=== PATIENT | female | born 1990 | race Caucasian/White ===

== ENCOUNTER → 2016-06-06 | Outpatient (CLI) | payer BC | LOC: MW.CHOBGYN 14:36 | PROVIDERS: ATTEND Obstetrics & Gynecology | DX: Z34.90 Encounter for supervision of normal pregnancy, unspecified, unspecified trimester (principal) | CPT/HCPCS: 81003 ==

== ENCOUNTER → 2016-06-21 | Outpatient (CLI) | payer BC | LOC: MW.CHOBGYN 15:38 | PROVIDERS: ATTEND Obstetrics & Gynecology | DX: Z34.90 Encounter for supervision of normal pregnancy, unspecified, unspecified trimester (principal) | CPT/HCPCS: 87081 ==

== ENCOUNTER → 2016-07-04 | Outpatient (CLI) | payer BC | LOC: MW.CHOBGYN 15:52 | PROVIDERS: ATTEND Nurse Practitioner Women's Health | DX: R50.9 Fever, unspecified (principal) | CPT/HCPCS: 36415; 85025; 87804 ==

== ENCOUNTER 2016-07-08 10:27 | Outpatient (CLI) | payer BC | END 2016-07-08 12:14 | disposition home or self-care (01) | LOC: MW.OBCHECK 10:27 → MW.OB 10:30 → MW.OBCHECK 12:14 | PROVIDERS: ATTEND Obstetrics & Gynecology | DX: O46.93 Antepartum hemorrhage, unspecified, third trimester (principal); Z3A.39 39 weeks gestation of pregnancy | CPT/HCPCS: 59025 ==

== ENCOUNTER 2016-07-12 08:00 | Inpatient (IN) | payer BC ==
[~2016-07-12 08:00] MED LIST: Citric Acid/Sodium Citrate Solution 30 ML Cup PO SCH; Sodium Chloride 0.9% 10 ML Syringe FLUSH PRN; Sodium Chloride 0.9% 2.5 ML Syringe FLUSH PRN; ceFAZolin 2 GM in Premix Bag 1 BAG IV ONE
[2016-07-12] MEDS ORDERED: Ondansetron 4 MG/2 ML SDV ONE (10:09)
[2016-07-12] MEDS ORDERED: Phenylephrine 1% 10 MG/ML SDV ONE (10:09)
[2016-07-12] MEDS ORDERED: Morphine PF 10 MG/10 ML SDV ONE (10:10)
[2016-07-12] MEDS ORDERED: Oxytocin 10 Units/1 ML SDV ONE (10:10)
[2016-07-12] MEDS: Lactated Ringers 1,000 ML IV SCH ×5 (10:16→22:35)
--- NOTE | 2016-07-12 11:17 | PCM.PREANE ---
Preanesthetic Assessment - Anesthesia/Transfusion/Family Hx Anesthesia History: Prior Anesthesia Without Reaction Family History of Anesthesia Reaction: No Transfusion History: No Prior Transfusion(s) - Review of Systems General: No Symptoms Pulmonary: No Symptoms Cardiovascular: No Symptoms Gastrointestinal: No symptoms Neurological: No Symptoms Other: Reports: None - Physical Assessment NPO Status Date: 07/11/16 Height: 1.73 m Weight: 117.027 kg ASA Class: 2 Mental Status: Alert & Oriented x3 Airway Class: Mallampati = 1 Dentition: Reports: Normal Dentition ROM/Head Extension: Full Lungs: Clear to auscultation, Normal respiratory effort Cardiovascular: Regular Rate, Regular Rhythm - Lab Values: Laboratory Last Values WBC 8.69 K/uL (4.0-11.0) 07/11/16 13:41 RBC 4.14 M/uL (4.30-5.90) L 07/11/16 13:41 Hgb 12.5 g/dL (12.0-16.0) 07/11/16 13:41 Hct 37.5 % (36.0-46.0) 07/11/16 13:41 MCV 90.6 fL (80.0-98.0) 07/11/16 13:41 MCH 30.2 pg (27.0-32.0) 07/11/16 13:41 MCHC 33.3 g/dL (31.0-37.0) 07/11/16 13:41 RDW Std Deviation 48.2 fl (28.0-62.0) 07/11/16 13:41 RDW Coeff of Erasmo 15 % (11.0-15.0) 07/11/16 13:41 Plt Count 271 K/uL (150-400) 07/11/16 13:41 MPV 9.80 fL (7.40-12.00) 07/11/16 13:41 Nucleated RBC % 0.0 /100WBC 07/11/16 13:41 Nucleated RBCs # 0 K/uL 07/11/16 13:41 Blood Type O POSITIVE 07/11/16 13:41 Antibody Screen NEGATIVE 07/11/16 13:41 - Allergies Allergies/Adverse Reactions: Allergies Allergy/AdvReac Type Severity Reaction Status Date / Time erythromycin base Allergy Mild Rash Verified 08/18/15 15:29 - Blood Blood Available: No - Anesthesia Plan Pre-Op Medication Ordered: Antacids - Acknowledgements Anesthesia Type Planned: Spinal Pt an Appropriate Candidate for the Planned Anesthesia: Yes Alternatives and Risks of Anesthesia Discussed w Pt/Guardian: Yes Pt/Guardian Understands and Agrees with Anesthesia Plan: Yes Additional Comments: intrathecal duramorph planned for post op analgesia. PreAnesthesia Questionnaire - Past Health History Medical/Surgical History: Denies Medical/Surgical History Genitourinary History: Reports: Renal calculus Other Genitourinary History: hx of kidney stone in 2008 [employer] History: Reports: 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 History: Reports: Fracture Other 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 History: hx fx arm Endocrine/Metabolic History: Reports: Obesity/BMI 30+ - Past Surgical History Head Surgeries/Procedures: Reports: None Female Surgical History: Reports: section - SUBSTANCE USE Smoking Status *Q: Never Smoker Recreational Drug Use History: No - HOME MEDS Home Medications: Home Meds Vit W-Ca,Fe,FA(<1 mg) [ Vitamins] 1 tab PO DAILY 07/07/16 [ History] - CURRENT (IN HOUSE) MEDS Current Meds: Current Medications Citric Acid/Sodium Citrate (Bicitra Solution) 30 ml PO .ONCE VIKI Lactated Ringer's (Ringers, Lactated) 1,000 mls @ 500 mls/hr IV .BOLUS VIKI Last Admin: 07/12/16 10:16 Dose: 500 mls/hr Sodium Chloride (Saline Flush) 10 ml FLUSH ASDIRECTED PRN PRN Reason: Keep Vein Open Sodium Chloride (Saline Flush) 2.5 ml FLUSH ASDIRECTED PRN PRN Reason: Keep Vein Open Discontinued Medications Cefazolin Sodium/Dextrose 2 gm (/ Premix) 50 mls @ 100 mls/hr IV ONETIME ONE Stop: 07/11/16 14:14 Morphine Sulfate (Duramorph Pf) Confirm Administered Dose 10 mg .ROUTE .STK-MED ONE Stop: 07/12/16 10:11 Ondansetron HCl (Zofran) Confirm Administered Dose 4 mg .ROUTE .STK-MED ONE Stop: 07/12/16 10:10 Oxytocin (Pitocin) Confirm Administered Dose 20 unit .ROUTE .STK-MED ONE Stop: 07/12/16 10:11 Phenylephrine HCl (Artem-Synephrine) Confirm Administered Dose 10 mg .ROUTE .STK- MED ONE Stop: 07/12/16 10:10
--- NOTE | 2016-07-12 11:18 | PCM.LDHP ---
L&D History of Present Illness - General Date of Service: 07/12/16 Admit Problem/Dx: Patient Status Order with Admit Dx/Problem 07/11/16 13:24 Patient Status [ADT] Routine Admission Diagnosis/Problem Admission Diagnosis/Problem - planned Source of Information: Patient History Limitations: Reports: No limitations - History of Present Illness Improves with: Reports: None Worsens with: Reports: None Associated Symptoms: Reports: N - Related Data Allergies/Adverse Reactions: Allergies Allergy/AdvReac Type Severity Reaction Status Date / Time erythromycin base Allergy Mild Rash Verified 08/18/15 15:29 Home Medications: Home Meds Vit W-Ca,Fe,FA(<1 mg) [ Vitamins] 1 tab PO DAILY 07/07/16 [ History] Past Medical History - Past Health History Medical/Surgical History: Denies Medical/Surgical History Genitourinary History: Reports: Renal calculus Other Genitourinary History: hx of kidney stone in 2008 [employer] History: Reports: 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 History: Reports: Fracture Other 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 History: hx fx arm Endocrine/Metabolic History: Reports: Obesity/BMI 30+ - Past Surgical History Head Surgeries/Procedures: Reports: None Female Surgical History: Reports: section Social & Family History - Tobacco Use Smoking Status *Q: Never Smoker - Recreational Drug Use Recreational Drug Use: No H&P Review of Systems - Review of Systems: Review Of Systems: See Below General: Reports: no symptoms HEENT: Reports: no symptoms Pulmonary: Reports: No Symptoms Cardiovascular: Reports: no symptoms Gastrointestinal: Reports: No symptoms Genitourinary: Reports: no symptoms 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: Reports: no symptoms Skin: Reports: no symptoms Psychiatric: Reports: no symptoms Neurological: Reports: No Symptoms Hematologic/Lymphatic: Reports: no symptoms Immunologic: Reports: no symptoms L&D Exam - Exam Exam: See Below - Vital Signs Weight: 117.027 kg - OB Specific Contraction Intensity: Mild heart tones: present Presentation: Vertex - Patient Data Lab Results last 24 hrs: Laboratory Results - last 24 hr 07/11/16 07/11/16 Range/Units 13:41 13:41 WBC 8.69 (4.0-11.0) K/uL RBC 4.14 L (4.30-5.90) M/uL Hgb 12.5 (12.0-16.0) g/dL Hct 37.5 (36.0-46.0) % MCV 90.6 (80.0-98.0) fL MCH 30.2 (27.0-32.0) pg MCHC 33.3 (31.0-37.0) g/dL RDW Std Deviation 48.2 (28.0-62.0) fl RDW Coeff of Erasmo 15 (11.0-15.0) % Plt Count 271 (150-400) K/uL MPV 9.80 (7.40-12.00) fL Nucleated RBC % 0.0 /100WBC Nucleated RBCs # 0 K/uL Blood Type O POSITIVE Antibody Screen NEGATIVE Result Diagrams: 07/11/16 13:41 Problem List Initiated/Reviewed/Updated: Yes Orders Last 24hrs: Active Orders 24 hr Category Date Time Status Patient Status [ADT] Routine ADT 07/11/16 13:24 Active Non Stress Test [RC] PER UNIT ROUTINE Care 07/11/16 13:24 Active Procedure Site Prep Instruct [RC] ASDIRECTED Care 07/11/16 13:24 Active Up ad Ashlie [RC] ASDIRECTED Care 07/11/16 13:24 Active Verify Patient Consent Obtain [RC] ASDIRECTED Care 07/11/16 13:24 Active Vital Signs [RC] PER UNIT ROUTINE Care 07/11/16 13:24 Active Citric Acid/Sodium Citrate [Bicitra Solution] Med 07/11/16 13:30 Active 30 ml PO .ONCE Lactated Ringers [Ringers, Lactated] 1,000 ml Med 07/11/16 13:30 Active IV .BOLUS Sodium Chloride 0.9% [Saline Flush] Med 07/11/16 13:23 Active 10 ml FLUSH ASDIRECTED PRN Sodium Chloride 0.9% [Saline Flush] Med 07/11/16 13:23 Active 2.5 ml FLUSH ASDIRECTED PRN Peripheral IV Insertion Adult [OM.PC] Routine Oth 07/11/16 13:24 Ordered Schedule Procedure [COMM] Per Unit Routine Oth 07/11/16 13:24 Ordered Resuscitation Status Routine Resus Stat 07/11/16 13:23 Ordered Medication Orders Citric Acid/Sodium Citrate (Bicitra Solution) 30 ml PO .ONCE VIKI Lactated Ringer's (Ringers, Lactated) 1,000 mls @ 500 mls/hr IV .BOLUS VIKI Last Admin: 07/12/16 10:16 Dose: 500 mls/hr Sodium Chloride (Saline Flush) 10 ml FLUSH ASDIRECTED PRN PRN Reason: Keep Vein Open Sodium Chloride (Saline Flush) 2.5 ml FLUSH ASDIRECTED PRN PRN Reason: Keep Vein Open Assessment/Plan Comment:: And admitted for elective repeat section no care complicated
[2016-07-12] MEDS ORDERED: Acetaminophen/oxyCODONE 325-5 MG Tab PO PRN ×2 (12:38→12:54)
[2016-07-12] MEDS ORDERED: fentaNYL 100 MCG/2 ML SDV IVPUSH PRN (12:38)
[2016-07-12] MEDS ORDERED: Nalbuphine 10 MG/1 ML Vial IVPUSH PRN (12:38)
[2016-07-12] MEDS ORDERED: Octyl 2-Cyanoacrylate 1 Tube ONE (12:44)
[2016-07-12] MEDS ORDERED: Ondansetron 4 MG/2 ML SDV IV PRN (12:54)
[2016-07-12] MEDS ORDERED: Lanolin 100% Cream 7 GM Tube TOP PRN (12:54)
[2016-07-12] MEDS ORDERED: Bisacodyl 10 MG Supp RECTAL PRN (12:54)
[2016-07-12] MEDS ORDERED: diphenhydrAMINE 50 MG/ML SDV IVPUSH PRN (12:54)
--- NOTE | 2016-07-12 12:54 | PCM.OPNOTE ---
- General Post-Op/Procedure Note Date of Surgery/Procedure: 07/12/16 Operative Procedure(s): Term pregnanvy Repeat C/Section Pre Op Diagnosis: Term Post-Op Diagnosis: Same Anesthesia Technique: Spinal Primary Surgeon: Timi Bhatti EBL in mLs: 700 Complications: None Condition: Good
[2016-07-12] MEDS: Ketorolac 30 MG/ML SDV IVPUSH SCH ×3 (13:21→19:46)
--- NOTE | 2016-07-12 14:08 | PCM.POSTAN ---
POST ANESTHESIA ASSESSMENT - MENTAL STATUS Mental Status: alert, oriented - RESPIRATORY Respiratory Status: respiratory rate WNL, airway patent, O2 saturation stable - CARDIOVASCULAR CV Status: pulse rate WNL, blood pressure stable - GASTROINTESTINAL GI Status: no symptoms - PAIN Pain Score: 0 - POST OP HYDRATION Hydration Status: adequate & stable
--- NOTE | 2016-07-12 19:40 | OR ---
SURGEON: Timi Bhatti MD DATE OF PROCEDURE: PREOPERATIVE DIAGNOSIS: Term , previous section, admitted for elective repeat section. 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 ANESTHESIA: Spinal, Dr. Terrazas and nurse promotion officer. ESTIMATED BLOOD LOSS: 700 mL. COMPLICATIONS: None. FINDING: Male fetus. score reported to be 8 and 9. Weight is not available. Normal uterus, tubes, and ovaries. INDICATION: This patient is 25. She had a previous section. She is term. She is admitted for elective repeat section. There was no preoperative problem and her care was essentially is routine. PROCEDURE IN DETAIL: The patient was brought to the OR, properly identified, and after adequate level of spinal anesthesia with a Sharma catheter in the bladder, the patient was prepped and draped in sterile fashion as usual. Time out was done and then low transverse skin incision was done through the old scar. The Eric's fascia, rectus fascia was opened in direction of the incision. The 2 recti muscles were and peritoneal cavity was entered. A low transverse uterine incision was done in the lower uterine segment and extended manually. Hand of the fetus was in the vertex position, delivered without any problem and to the nurse resuscitator, who was present at the time of the delivery. The fetus cried immediately and score later on reported to be 8 and 9. The weight is not available. The placenta delivered spontaneous, complete, and intact and then repair of the lower uterine segment done with 2-0 Vicryl continuous interlocking with 2-0 Vicryl sutures. Then, the reperitonealization of the lower uterine segment was done with 2-0 Vicryl continuous, then the peritoneal cavity evacuated completely from all blood and blood clot and closed with 3-0 Vicryl continuous. The rectus fascia was closed with #1 PDS double strand continuous. The Eric's fascia was closed with 3-0 Vicryl continuous and the skin was closed with skin clips, Insorb, and Dermabond. Instrument and sponge count was correct. The patient tolerated the procedure well, went to recovery room in stable general condition. SABINE / ANAY /[id number]
[2016-07-12] MEDS: Docusate Sodium 100 MG Cap PO SCH (19:47)
[2016-07-13] MEDS: Ketorolac 30 MG/ML SDV IVPUSH SCH ×3 (01:41→13:53)
--- NOTE | 2016-07-13 08:33 | PCM.PNPP ---
- General Info Date of Service: 07/13/16 Functional Status: Reports: pain controlled - Review of Systems General: Reports: No Symptoms HEENT: Reports: no symptoms Pulmonary: Reports: no symptoms Cardiovascular: Reports: No Symptoms Gastrointestinal: Reports: No symptoms Genitourinary: Reports: no symptoms 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: Reports: no symptoms Skin: Reports: no symptoms Neurological: Reports: No Symptoms Psychiatric: Reports: no symptoms - General Info Date of Service: 07/13/16 - Patient Data Vital Signs - most recent: Last Vital Signs Temp 36.6 C 07/13/16 04:00 Pulse 54 L 07/13/16 05:59 Resp 16 07/13/16 05:59 BP 99/54 L 07/13/16 04:00 Pulse Ox 97 07/13/16 05:59 Weight - most recent: 117.027 kg I&O - last 24 hours: Intake & Output 07/12/16 07/13/16 07/13/16 22:59 06:59 14:59 Intake Total 1456 1500 Output Total 100 600 625 Balance 1356 900 -625 Lab Results - last 24 hrs: Laboratory Results - last 24 hr 07/13/16 Range/Units 06:16 Hgb 11.0 L (12.0-16.0) g/dL Hct 33.1 L (36.0-46.0) % Med Orders - Current: Current Medications Bisacodyl (Dulcolax) 10 mg RECTAL .ONCE PRN PRN Reason: Constipation Citric Acid/Sodium Citrate (Bicitra Solution) 30 ml PO .ONCE VIKI Last Admin: 07/12/16 11:24 Dose: 30 ml Diphenhydramine HCl (Benadryl) 25 mg IVPUSH Q6H PRN PRN Reason: Itching or Nausea Last Admin: 07/12/16 15:02 Dose: 25 mg Docusate Sodium (Colace) 100 mg PO BID VIKI Last Admin: 07/12/16 19:47 Dose: 100 mg Emollient Ointment (Lansinoh Hpa) 0 gm TOP ASDIRECTED PRN PRN Reason: Sore Nipples Fentanyl (Sublimaze) 50 mcg IVPUSH Q5M PRN PRN Reason: Pain (severe 7-10) Stop: 07/13/16 12:38 Lactated Ringer's (Ringers, Lactated) 1,000 mls @ 500 mls/hr IV .BOLUS [facility] Last Admin: 07/12/16 11:55 Dose: 500 mls/hr Lactated Ringer's (Ringers, Lactated) 1,000 mls @ 125 mls/hr IV ASDIRECTED [facility] Last Admin: 07/12/16 22:35 Dose: 125 mls/hr Ibuprofen (Motrin) 800 mg PO Q8H PRN PRN Reason: mild pain or fever Ketorolac Tromethamine (Toradol) 30 mg IVPUSH Q6H [facility] Stop: 07/13/16 13:01 Last Admin: 07/13/16 07:42 Dose: 30 mg Nalbuphine HCl (Nubain) 5 mg IVPUSH Q3H PRN PRN Reason: Pruritis Stop: 07/13/16 12:39 Ondansetron HCl (Zofran) 4 mg IV Q4H PRN PRN Reason: Nausea/Vomiting Oxycodone/Acetaminophen (Percocet 325-5 Mg) 2 tab PO ONETIME PRN PRN Reason: Pain (moderate 4-6) Oxycodone/Acetaminophen (Percocet 325-5 Mg) 1 tab PO Q4H PRN PRN Reason: Pain (moderate 4-6) Oxycodone/Acetaminophen (Percocet 325-5 Mg) 2 tab PO Q4H PRN PRN Reason: Pain (moderate 4-6) Sodium Chloride (Saline Flush) 10 ml FLUSH ASDIRECTED PRN PRN Reason: Keep Vein Open Sodium Chloride (Saline Flush) 2.5 ml FLUSH ASDIRECTED PRN PRN Reason: Keep Vein Open Discontinued Medications Cefazolin Sodium/Dextrose 2 gm (/ Premix) 50 mls @ 100 mls/hr IV ONETIME ONE Stop: 07/11/16 14:14 Morphine Sulfate (Duramorph Pf) Confirm Administered Dose 10 mg .ROUTE .STK-MED ONE Stop: 07/12/16 10:11 Octyl Cyanoacrylate (Dermabond Advance) Confirm Administered Dose 2 applic .ROUTE .STK-MED ONE Stop: 07/12/16 12:45 Ondansetron HCl (Zofran) Confirm Administered Dose 4 mg .ROUTE .STK-MED ONE Stop: 07/12/16 10:10 Oxytocin (Pitocin) Confirm Administered Dose 20 unit .ROUTE .STK-MED ONE Stop: 07/12/16 10:11 Phenylephrine HCl (Artem-Synephrine) Confirm Administered Dose 10 mg .ROUTE .STK- MED ONE Stop: 07/12/16 10:10 - Interaction Support Person: - Recovery Exam Fundal Tone: Firm Fundal Level: At Umbilicus Fundal Placement: Midline Lochia Amount: Small Lochia Color: Rubra/Red Perineum Description: Intact, Minimal Bruising/Swelling Episiotomy/Laceration: None Bladder Status: Voiding Urinary Elimination: Voided - Exam General: alert, oriented HEENT: Pupils equal Neck: supple Lungs: Clear to auscultation, Normal respiratory effort Cardiovascular: Regular Rate, Regular Rhythm Abdomen: bowel sounds present, soft, no tenderness, no distension Extremities: no edema Skin: warm, dry, intact Wound/Incisions: healing well Neurological: no new focal deficit Psy/Mental Status: alert, normal affect, normal mood - Problem List Review Problem List Initiated/Reviewed/Updated: Yes - My Orders Last 24 Hours: My Active Orders 07/12/16 12:54 Patient Status [ADT] Routine Ambulate [RC] PER UNIT ROUTINE Communication Order [RC] PER UNIT ROUTINE Communication Order [RC] PER UNIT ROUTINE Communication Order [RC] Per Unit Routine May Shower [RC] ASDIRECTED RT Incentive Spirometry [RC] Q2HWA Vital Signs [RC] PER UNIT ROUTINE Acetaminophen/oxyCODONE [Percocet 325-5 MG] 1 tab PO Q4H PRN Acetaminophen/oxyCODONE [Percocet 325-5 MG] 2 tab PO Q4H PRN Bisacodyl [Dulcolax] 10 mg RECTAL .ONCE PRN Ibuprofen [Motrin] 800 mg PO Q8H PRN Lanolin [Lansinoh HPA] See Dose Instructions TOP ASDIRECTED PRN Ondansetron [Zofran] 4 mg IV Q4H PRN diphenhydrAMINE [Benadryl] 25 mg IVPUSH Q6H PRN Assess Lochia [WOMSER] Per Unit Routine Assess Uterine Involution [WOMSER] Per Unit Routine Breast Pump [WOMSER] Per Unit Routine Peripheral IV Discontinue [OM.PC] Routine Sequential Compression Device [OM.PC] Per Unit Routine 07/12/16 12:55 Antiembolic Devices [RC] PER UNIT ROUTINE 07/12/16 13:00 Ketorolac [Toradol] 30 mg IVPUSH Q6H Lactated Ringers [Ringers, Lactated] 1,000 ml IV ASDIRECTED 07/12/16 21:00 Docusate Sodium [Colace] 100 mg PO BID 07/12/16 Dinner Regular Diet [DIET] - Assessment Assessment:: Status post section postoperative day #1 Sharma catheter is out patient is out of the bed on regular diet tolerated very well nontoxic and vital signs essentially within normal limit - Plan Plan:: And admitted for elective repeat section no care complicated
[2016-07-13] MEDS: Docusate Sodium 100 MG Cap PO SCH ×3 (09:06→20:53)
[2016-07-13] MEDS: Acetaminophen/oxyCODONE 325-5 MG Tab PO PRN ×2 (13:56→20:52)
--- NOTE | 2016-07-13 19:24 | PCM48HPAN ---
Post Anesthesia Note - EVALUATION WITHIN 48HRS OF ANESTHETIC Vital Signs in Normal Range: Yes Patient Participated in Evaluation: Yes Respiratory Function Stable: Yes Airway Patent: Yes Cardiovascular Function Stable: Yes Hydration Status Stable: Yes Pain Control Satisfactory: Yes Nausea and Vomiting Control Satisfactory: Yes Mental Status Recovered: Yes
[2016-07-13] MEDS: Ibuprofen 800 MG Tab PO PRN (20:53)
[2016-07-14] MEDS: Acetaminophen/oxyCODONE 325-5 MG Tab PO PRN ×2 (01:06→08:00)
[2016-07-14] MEDS: Ibuprofen 800 MG Tab PO PRN (07:59)
[2016-07-14] MEDS: Docusate Sodium 100 MG Cap PO SCH (08:01)
--- NOTE | 2016-07-14 08:31 | PCM.PNPP ---
- General Info Date of Service: 07/14/16 Functional Status: Reports: pain controlled - Review of Systems General: Reports: No Symptoms HEENT: Reports: no symptoms Pulmonary: Reports: no symptoms Cardiovascular: Reports: No Symptoms Gastrointestinal: Reports: No symptoms Genitourinary: Reports: no symptoms 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: Reports: no symptoms Skin: Reports: no symptoms Neurological: Reports: No Symptoms Psychiatric: Reports: no symptoms - General Info Date of Service: 07/14/16 - Patient Data Vital Signs - most recent: Last Vital Signs Temp 36.9 C 07/14/16 04:17 Pulse 77 07/14/16 04:17 Resp 17 07/14/16 04:17 BP 107/53 L 07/14/16 04:17 Pulse Ox 98 07/14/16 04:17 Weight - most recent: 117.027 kg Med Orders - Current: Current Medications Bisacodyl (Dulcolax) 10 mg RECTAL .ONCE PRN PRN Reason: Constipation Citric Acid/Sodium Citrate (Bicitra Solution) 30 ml PO .ONCE [facility] Last Admin: 07/12/16 11:24 Dose: 30 ml Diphenhydramine HCl (Benadryl) 25 mg IVPUSH Q6H PRN PRN Reason: Itching or Nausea Last Admin: 07/12/16 15:02 Dose: 25 mg Docusate Sodium (Colace) 100 mg PO BID [facility] Last Admin: 07/14/16 08:01 Dose: 100 mg Emollient Ointment (Lansinoh Hpa) 0 gm TOP ASDIRECTED PRN PRN Reason: Sore Nipples Lactated Ringer's (Ringers, Lactated) 1,000 mls @ 500 mls/hr IV .BOLUS [facility] Last Admin: 07/12/16 11:55 Dose: 500 mls/hr Lactated Ringer's (Ringers, Lactated) 1,000 mls @ 125 mls/hr IV ASDIRECTED [facility] Last Admin: 07/12/16 22:35 Dose: 125 mls/hr Ibuprofen (Motrin) 800 mg PO Q8H PRN PRN Reason: mild pain or fever Last Admin: 07/14/16 07:59 Dose: 800 mg Ondansetron HCl (Zofran) 4 mg IV Q4H PRN PRN Reason: Nausea/Vomiting Oxycodone/Acetaminophen (Percocet 325-5 Mg) 2 tab PO ONETIME PRN PRN Reason: Pain (moderate 4-6) Oxycodone/Acetaminophen (Percocet 325-5 Mg) 1 tab PO Q4H PRN PRN Reason: Pain (moderate 4-6) Last Admin: 07/14/16 08:00 Dose: 1 tab Oxycodone/Acetaminophen (Percocet 325-5 Mg) 2 tab PO Q4H PRN PRN Reason: Pain (moderate 4-6) Sodium Chloride (Saline Flush) 10 ml FLUSH ASDIRECTED PRN PRN Reason: Keep Vein Open Sodium Chloride (Saline Flush) 2.5 ml FLUSH ASDIRECTED PRN PRN Reason: Keep Vein Open Discontinued Medications Fentanyl (Sublimaze) 50 mcg IVPUSH Q5M PRN PRN Reason: Pain (severe 7-10) Stop: 07/13/16 12:38 Cefazolin Sodium/Dextrose 2 gm (/ Premix) 50 mls @ 100 mls/hr IV ONETIME ONE Stop: 07/11/16 14:14 Ketorolac Tromethamine (Toradol) 30 mg IVPUSH Q6H VIKI Stop: 07/13/16 13:01 Last Admin: 07/13/16 13:53 Dose: 30 mg Morphine Sulfate (Duramorph Pf) Confirm Administered Dose 10 mg .ROUTE .STK-MED ONE Stop: 07/12/16 10:11 Nalbuphine HCl (Nubain) 5 mg IVPUSH Q3H PRN PRN Reason: Pruritis Stop: 07/13/16 12:39 Octyl Cyanoacrylate (Dermabond Advance) Confirm Administered Dose 2 applic .ROUTE .STK-MED ONE Stop: 07/12/16 12:45 Ondansetron HCl (Zofran) Confirm Administered Dose 4 mg .ROUTE .STK-MED ONE Stop: 07/12/16 10:10 Oxytocin (Pitocin) Confirm Administered Dose 20 unit .ROUTE .STK-MED ONE Stop: 07/12/16 10:11 Phenylephrine HCl (Artem-Synephrine) Confirm Administered Dose 10 mg .ROUTE .STK- MED ONE Stop: 07/12/16 10:10 - Interaction Support Person: - Recovery Exam Fundal Tone: Firm Fundal Level: At Umbilicus Fundal Placement: Midline Lochia Amount: Small Lochia Color: Rubra/Red Perineum Description: Intact, Minimal Bruising/Swelling Episiotomy/Laceration: None Bladder Status: Voiding Urinary Elimination: Voided - Exam General: alert, oriented HEENT: Pupils equal Neck: supple Lungs: Clear to auscultation, Normal respiratory effort Cardiovascular: Regular Rate, Regular Rhythm Abdomen: bowel sounds present, soft, no tenderness, no distension Extremities: no edema Skin: warm, dry, intact Wound/Incisions: healing well Neurological: no new focal deficit Psy/Mental Status: alert, normal affect, normal mood - Problem List Review Problem List Initiated/Reviewed/Updated: Yes - Assessment Assessment:: Status post section postoperative day #1 Sharma catheter is out patient is out of the bed on regular diet tolerated very well nontoxic and vital signs essentially within normal limit - Plan Plan:: And admitted for elective repeat section no care complicated
--- NOTE | 2016-07-14 08:32 | PCM.DCSUM1 ---
Discharge Summary - Discharge Data Discharge Date: 07/14/16 Discharge Disposition: Home, Self-Care 01 Condition: Good - Patient Summary/Data Operative Procedure(s) Performed: Term pregnanvy Repeat C/Section - Patient Instructions Diet: Usual Diet as Tolerated Activity: As Tolerated Driving: Do Not Drive Showering/Bathing: August Shower Wound/Incision Care: Keep Operative Site/Wound Site Clean and Dry Notify Provider of: Fever, Increased Pain, Swelling and Redness, Nausea and/or Vomiting - Discharge Plan Home Medications: Home Meds Vit W-Ca,Fe,FA(<1 mg) [ Vitamins] 1 tab PO DAILY 07/07/16 [ History] Referrals: [facility] [Outside] Timi Bhatti MD [Physician] - (1 week- July 26 @ 9:30am w/ Dr. Bhatti week- August 22 @ 8:30am w/ Dr. Bhatti) - General Info Date of Service: 07/14/16 Functional Status: Reports: pain controlled - Review of Systems General: Reports: No Symptoms HEENT: Reports: no symptoms Pulmonary: Reports: no symptoms Cardiovascular: Reports: No Symptoms Gastrointestinal: Reports: No symptoms Genitourinary: Reports: no symptoms 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: Reports: no symptoms Skin: Reports: no symptoms Neurological: Reports: No Symptoms Psychiatric: Reports: no symptoms - Patient Data Vitals - Most Recent: Last Vital Signs Temp 36.9 C 07/14/16 04:17 Pulse 77 07/14/16 04:17 Resp 17 07/14/16 04:17 BP 107/53 L 07/14/16 04:17 Pulse Ox 98 07/14/16 04:17 Weight - Most Recent: 117.027 kg Med Orders - Current: Current Medications Bisacodyl (Dulcolax) 10 mg RECTAL .ONCE PRN PRN Reason: Constipation Citric Acid/Sodium Citrate (Bicitra Solution) 30 ml PO .ONCE VIKI Last Admin: 07/12/16 11:24 Dose: 30 ml Diphenhydramine HCl (Benadryl) 25 mg IVPUSH Q6H PRN PRN Reason: Itching or Nausea Last Admin: 07/12/16 15:02 Dose: 25 mg Docusate Sodium (Colace) 100 mg PO BID VIKI Last Admin: 07/14/16 08:01 Dose: 100 mg Emollient Ointment (Lansinoh Hpa) 0 gm TOP ASDIRECTED PRN PRN Reason: Sore Nipples Lactated Ringer's (Ringers, Lactated) 1,000 mls @ 500 mls/hr IV .BOLUS [facility] Last Admin: 07/12/16 11:55 Dose: 500 mls/hr Lactated Ringer's (Ringers, Lactated) 1,000 mls @ 125 mls/hr IV ASDIRECTED [facility] Last Admin: 07/12/16 22:35 Dose: 125 mls/hr Ibuprofen (Motrin) 800 mg PO Q8H PRN PRN Reason: mild pain or fever Last Admin: 07/14/16 07:59 Dose: 800 mg Ondansetron HCl (Zofran) 4 mg IV Q4H PRN PRN Reason: Nausea/Vomiting Oxycodone/Acetaminophen (Percocet 325-5 Mg) 2 tab PO ONETIME PRN PRN Reason: Pain (moderate 4-6) Oxycodone/Acetaminophen (Percocet 325-5 Mg) 1 tab PO Q4H PRN PRN Reason: Pain (moderate 4-6) Last Admin: 07/14/16 08:00 Dose: 1 tab Oxycodone/Acetaminophen (Percocet 325-5 Mg) 2 tab PO Q4H PRN PRN Reason: Pain (moderate 4-6) Sodium Chloride (Saline Flush) 10 ml FLUSH ASDIRECTED PRN PRN Reason: Keep Vein Open Sodium Chloride (Saline Flush) 2.5 ml FLUSH ASDIRECTED PRN PRN Reason: Keep Vein Open Discontinued Medications Fentanyl (Sublimaze) 50 mcg IVPUSH Q5M PRN PRN Reason: Pain (severe 7-10) Stop: 07/13/16 12:38 Cefazolin Sodium/Dextrose 2 gm (/ Premix) 50 mls @ 100 mls/hr IV ONETIME ONE Stop: 07/11/16 14:14 Ketorolac Tromethamine (Toradol) 30 mg IVPUSH Q6H [facility] Stop: 07/13/16 13:01 Last Admin: 07/13/16 13:53 Dose: 30 mg Morphine Sulfate (Duramorph Pf) Confirm Administered Dose 10 mg .ROUTE .STK-MED ONE Stop: 07/12/16 10:11 Nalbuphine HCl (Nubain) 5 mg IVPUSH Q3H PRN PRN Reason: Pruritis Stop: 07/13/16 12:39 Octyl Cyanoacrylate (Dermabond Advance) Confirm Administered Dose 2 applic .ROUTE .STK-MED ONE Stop: 07/12/16 12:45 Ondansetron HCl (Zofran) Confirm Administered Dose 4 mg .ROUTE .STK-MED ONE Stop: 07/12/16 10:10 Oxytocin (Pitocin) Confirm Administered Dose 20 unit .ROUTE .STK-MED ONE Stop: 07/12/16 10:11 Phenylephrine HCl (Artem-Synephrine) Confirm Administered Dose 10 mg .ROUTE .STK- MED ONE Stop: 07/12/16 10:10 - Exam General: Reports: alert, oriented HEENT: Reports: Pupils equal, Pupils reactive, EOMI, Mucous membr. moist/pink Neck: Reports: supple Lungs: Reports: Clear to auscultation, Normal respiratory effort Cardiovascular: Reports: Regular Rate, Regular Rhythm Abdomen: Reports: bowel sounds present, soft, no tenderness, no distension (Female) Exam: Normal external exam, Normal speculum exam, Normal bimanual exam Rectal (Female) Exam: Normal Exam, Normal rectal tone Back Exam: Reports: normal inspection, full range of motion Extremities: Reports: no edema, normal pulses Skin: Reports: warm, dry, intact Wound/Incisions: Reports: healing well Neurological: Reports: no new focal deficit Psy/Mental Status: Reports: alert, normal affect, normal mood *Q Meaningful Use (DIS) - VTE *Q VTE Criteria *Q: - Stroke *Q Stroke Criteria *Q: - AMI *Q AMI Criteria *Q:
[2016-07-14 09:12] VITALS: BP 129/80
== END 2016-07-14 12:05 | disposition home or self-care (01) | DRG 540 ==
LOC: MW.OB 09:33
PROVIDERS: ADMIT Obstetrics & Gynecology; ATTEND Obstetrics & Gynecology
PROC: 10D00Z1 Extraction of Products of Conception, Low, Open Approach (ICD-10-PCS; principal; 2016-07-12)
DX: O34.211 Maternal care for low transverse scar from previous cesarean delivery (principal); Z3A.39 39 weeks gestation of pregnancy; Z37.0 Single live birth
CPT/HCPCS: 01961; 36415; 85014; 85018; 85027; 86850; 86900; 86901; A9270-GY; J1200; J1885; J2270; J2370; J2405; J2590; J7120

== ENCOUNTER 2016-11-10 10:15 | Emergency (ER) | payer BC ==
[2016-11-10] MEDS ORDERED: Ketorolac 30 MG/ML SDV IVPUSH ONE (10:36)
[2016-11-10] MEDS ORDERED: Sodium Chloride 0.9% 1,000 ML IV ONE (10:36)
--- NOTE | 2016-11-10 10:37 | EDM.PDOC ---
ED HPI GENERAL MEDICAL PROBLEM - General Chief Complaint: Gastrointestinal Problem Stated Complaint: ABDOMINAL PAIN/NAUSEA/VOMITING Time Seen by Provider: 11/10/16 10:33 Source of Information: Reports: Patient History Limitations: Reports: No Limitations - History of Present Illness INITIAL COMMENTS - FREE TEXT/NARRATIVE: HISTORY AND PHYSICAL: [] 26-year-old female presenting with right-sided abdominal pain History of Present Illness: []Pain started one week ago. Was present when she awakened. She did see her PCP yesterday was going to attempt to get a ultrasound next week. Pain worsened today so she came to the ER. Relates several months ago that after eating pork she experienced pain to the right epigastric area. At this time eating does make her pain worse Review of Systems: As per history of present illness and below otherwise all systems reviewed and negative. Past medical history: As per history of present illness and as reviewed below otherwise noncontributory. Surgical history: As per history of present illness and as reviewed below otherwise noncontributory. Social history: No reported history of drug or alcohol abuse. Family history: As per history of present illness and as reviewed below otherwise noncontributory. Physical exam: pleasant woman who speaking in full sentences skin is warm and dry, patient has been crying and face is mottled erythematous. Patient is obese. HEENT: Atraumatic, normocehpalic, pupils reactive, negative for conjunctival pallor or scleral icterus, mucous membranes moist, throat clear, neck supple, nontender, trachea midline. Lungs: Clear to auscultation, breath sounds equal bilaterally, chest non tender. Heart: S1S2, regular, negative for clicks, rubs, or JVD. Abdomen: Soft, nondistended, tender to palpation of the right upper quadrant. No rebound or guarding. Negative for masses or hepatossplenmegaly. Negative for costovertebral tenderness. Pelvis: Stable nontender. Genitourinary: Deferred. Rectal: Deferred Extremities: Atraumatic, negative for cords or calf pain. Neurovascular unremarkable. Neuro: Awake, alert, oriented. Cranial nerves II through XII unremarkable. Cerebellum unremarkable. Motor and sensory unremarkable throughout. Exam nonfocal. Ultrasound shows calculus or calculi impacted in the neck of the gallbladder at the cystic duct junction have discussed this finding with Dr. Burton. He wishes to see the patient in his office tomorrow. Patient is comfortable on discharge from the ER Diagnostics: [Ultrasound limited abdomen] Therapeutics: [Toradol/morphine/Zofran] Impression: [Calculus in the gallbladder] Plan: [Home See Dr. Burton in the 2020 building at 8: 40 AM tomorrow 11/11/16] No fatty foods hydrocodone/APAP 10/325 one or two tablets q 6 hours prn pain #10NR Definitive disposition and diagnosis as appropriate pending reevaluation and review of above. Onset: Sudden Duration: Week(s): (1), Getting Worse Location: Reports: Abdomen Quality: Reports: Stabbing Severity: Moderate Improves with: Reports: None Worsens with: Reports: Eating Associated Symptoms: Reports: Nausea/Vomiting, Other (Yellow diarrhea yesterday) abdomen Pain Score (Numeric/FACES): 3 - Related Data Allergies Allergy/AdvReac Type Severity Reaction Status Date / Time erythromycin base Allergy Mild Rash Verified 11/10/16 10:17 Home Meds: Home Meds . 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 ED EXAM, GI/ABD - Physical Exam Exam: See Below (see dictation) Course - Vital Signs Last Recorded V/S: Last Vital Signs Temp 36.8 C 11/10/16 10:18 Pulse 104 H 11/10/16 10:18 Resp 18 11/10/16 10:18 BP 127/76 11/10/16 10:18 Pulse Ox 96 11/10/16 10:18 - Orders/Labs/Meds Labs: Laboratory Tests 11/10/16 11/10/16 Range/Units 12:07 12:07 WBC 9.28 (4.0-11.0) K/uL RBC 4.31 (4.30-5.90) M/uL Hgb 12.6 (12.0-16.0) g/dL Hct 38.5 (36.0-46.0) % MCV 89.3 (80.0-98.0) fL MCH 29.2 (27.0-32.0) pg MCHC 32.7 (31.0-37.0) g/dL RDW Std Deviation 45.7 (28.0-62.0) fl RDW Coeff of Erasmo 14 (11.0-15.0) % Plt Count 331 (150-400) K/uL MPV 9.60 (7.40-12.00) fL Neut % (Auto) 75.6 (48.0-80.0) % Lymph % (Auto) 16.4 (16.0-40.0) % [place] % (Auto) 7.0 (0.0-15.0) % Eos % (Auto) 0.8 (0.0-7.0) % Baso % (Auto) 0.2 (0.0-1.5) % Neut # (Auto) 7.0 H (1.4-5.7) K/uL Lymph # (Auto) 1.5 (0.6-2.4) K/uL [place] # (Auto) 0.7 (0.0-0.8) K/uL Eos # (Auto) 0.1 (0.0-0.7) K/uL Baso # (Auto) 0.0 (0.0-0.1) K/uL Nucleated RBC % 0.0 /100WBC Nucleated RBCs # 0 K/uL Sodium 141 (136-146) mmol/L Potassium 3.9 (3.5-5.1) mmol/L Chloride 110 (98-110) mmol/L Carbon Dioxide 22 (21-31) mmol/L BUN 9 (6.0-23.0) mg/dL Creatinine 0.7 (0.6-1.5) mg/dL Est Cr Clr Drug Dosing 121.78 mL/min Estimated GFR (MDRD) > 60.0 ml/min Glucose 92 (60-110) mg/dL Calcium 9.0 (8.8-10.8) mg/dL Total Bilirubin 0.4 (0.1-1.5) mg/dL AST 20 (5-40) IU/L ALT 26 (8-54) IU/L Alkaline Phosphatase 83 (40-150) Total Protein 7.2 (6.0-8.0) g/dL Albumin 4.0 (3.5-5.0) g/dL Globulin 3.2 (2.0-3.5) g/dL Albumin/Globulin Ratio 1.3 (1.3-2.8) Meds: Medications Discontinued Medications Generic Name Dose Route Start Last Admin Trade Name Freq PRN Reason Stop Dose Admin Sodium Chloride 1,000 mls @ 999 mls/hr 11/10/16 10:36 11/10/16 10:55 Normal Saline IV 11/10/16 11:36 999 mls/hr STAT ONE Administration Pantoprazole Sodium 10 mg/ 20 mls @ 80 mls/hr 11/10/16 12:23 Sodium Chloride IV 11/10/16 12:37 ONETIME ONE Pantoprazole Sodium 10 mg/ 10 mls @ 300 mls/hr 11/10/16 12:36 11/10/16 12:43 Sodium Chloride IVPUSH 11/10/16 12:37 300 mls/hr NOW ONE Administration Ketorolac Tromethamine 30 mg 11/10/16 10:36 11/10/16 10:59 Toradol IVPUSH 11/10/16 10:37 30 mg ONETIME ONE Administration Morphine Sulfate 2 mg 11/10/16 12:23 11/10/16 12:35 Morphine IV 11/10/16 12:24 2 mg ONETIME ONE Administration Departure - Departure Time of Disposition: 12:34 Disposition: Home, Self-Care 01 Condition: Good Clinical Impression: Gallbladder calculus Qualifiers: Cholecystitis presence: without cholecystitis Biliary obstruction: without biliary obstruction Qualified Code(s): K80.20 - Calculus of gallbladder without cholecystitis without obstruction - Discharge Information Instructions: Abdominal Pain, Adult, [id number] Referrals: Saadia Viramontes MD [Primary Care Provider] - Mayo Burton MD [Physician] - Forms: ED Department Discharge Additional Instructions: The following information is given to patients seen in the emergency department who are being discharged to home. This information is to outline your options for follow-up care. We provide all patients seen in our emergency department with a follow-up referral. The need for follow-up, as well as the timing and circumstances, are variable depending upon the specifics of your emergency department visit. If you don't have a primary care physician on staff, we will provide you with a referral. We always advise you to contact your personal physician following an emergency department visit to inform them of the circumstance of the visit and for follow-up with them and/or the need for any referrals to a consulting specialist. The emergency department will also refer you to a specialist when appropriate. This referral assures that you have the opportunity for followup care with a specialist. All of these measure are taken in an effort to provide you with optimal care, which includes your followup. Under all circumstances we always encourage you to contact your private physician who remains a resource for coordinating your care. When calling for followup care, please make the office aware that this follow-up is from your recent emergency room visit. If for any reason you are refused follow-up, please contact the [facility] emergency department at and asked to speak to the emergency department charge nurse. Prescription is written for hydrocodone/APAP 1 tablet every 6 hours as needed for pain #10 no refill prescription is written forx 40 mg by mouth twice a day Referral has been made to Dr. Burton His office is located in the [address] [place] [address] Appointment has been made for tomorrow11/11/16 at 8:45 AM
[2016-11-10] MEDS ORDERED: Dexamethasone 10 MG/ML SDV IVPUSH ONE (11:36)
--- NOTE | 2016-11-10 12:09 | US ---
Upper abdominal sonogram Multiple longitudinal and transverse sections were obtained of the right upper quadrant attention th e gallbladder. Findings: The gallbladder is physiologically distended without gallbladder wall thickening or perich olecystic fluid but there is a large calculus or calculi shadowing from the junction of the cystic d uct and the neck of the gallbladder. Common bile duct is not dilated. No intrahepatic ductal dilatio n is present. Contiguous liver is normal. Right kidney is normal. By report the patient has clinical tenderness upon interrogation of the gallbladder with the ultrasound transducer (positive Hamilton's sign) Impression: Calculus or calculi impacted in the neck of the gallbladder at the cystic duct junction. No evidence of pericholecystic fluid or gallbladder wall thickening as yet. No evidence of common b ile duct obstruction.
[2016-11-10] MEDS ORDERED: Morphine 10 MG/ML Syringe IV ONE (12:23)
[2016-11-10] MEDS ORDERED: PANTOPRAZOLE IV ONE (12:23)
[2016-11-10] MEDS ORDERED: SODIUM CHLORIDE 0.9% IV ONE (12:23)
[2016-11-10] MEDS ORDERED: SODIUM CHLORIDE 0.9% IVPUSH ONE (12:36)
[2016-11-10] MEDS ORDERED: PANTOPRAZOLE IVPUSH ONE (12:36)
[2016-11-10 12:45] LABS: CHLORIDE,CL 110 mmol/L (98-110); SODIUM,NA 141 mmol/L (136-146)
[2016-11-10 13:10] VITALS: BP 119/59
== END 2016-11-10 13:03 | disposition home or self-care (01) ==
LOC: MW.ED 10:15
DX: K80.20 Calculus of gallbladder without cholecystitis without obstruction (principal); E66.9 Obesity, unspecified; Z87.442 Personal history of urinary calculi; Z88.1 Allergy status to other antibiotic agents
CPT/HCPCS: 36415; 76705; 80053; 85025; 96361; 96374; 96375; 99284; J1885; J2270; J7040; C9113

== ENCOUNTER 2016-11-14 10:31 | Day surgery (SDC) | payer BC ==
[~2016-11-14 10:31] MED LIST changes: -Citric Acid/Sodium Citrate Solution 30 ML Cup PO SCH; +Lactated Ringers 1,000 ML IV SCH; -Sodium Chloride 0.9% 10 ML Syringe FLUSH PRN; -Sodium Chloride 0.9% 2.5 ML Syringe FLUSH PRN
[2016-11-14] MEDS ORDERED: Scopolamine 1.5 MG Transdermal Patch TRDERM PRN (11:07)
--- NOTE | 2016-11-14 11:46 | PCM.PREANE ---
Preanesthetic Assessment - Anesthesia/Transfusion/Family Hx Anesthesia History: Prior Anesthesia Without Reaction Family History of Anesthesia Reaction: No Transfusion History: No Prior Transfusion(s) - Review of Systems General: No Symptoms Pulmonary: No Symptoms Cardiovascular: No Symptoms Gastrointestinal: No Symptoms Neurological: No Symptoms Other: Reports: None - Physical Assessment NPO Status Date: 11/13/16 NPO Status Time: 23:00 O2 Sat by Pulse Oximetry: 95 Respiratory Rate: 16 Vital Signs: Last Vital Signs Temp 36.9 C 11/14/16 11:28 Pulse 65 11/14/16 11:28 Resp 16 11/14/16 11:28 BP 124/64 11/14/16 11:28 Pulse Ox 95 11/14/16 11:28 Height: 1.73 m Weight: 118.388 kg ASA Class: 2 Mental Status: Alert & Oriented x3 Dentition: Reports: Normal Dentition ROM/Head Extension: Full Lungs: Clear to Auscultation Cardiovascular: Regular Rate - Lab Values: Laboratory Last Values Urine HCG, Qual NEGATIVE (NEGATIVE) 11/14/16 10:45 - Allergies Allergies/Adverse Reactions: Allergies Allergy/AdvReac Type Severity Reaction Status Date / Time erythromycin base Allergy Mild Rash Verified 11/10/16 10:17 - Anesthesia Plan Pre-Op Medication Ordered: Other (scop) - Acknowledgements Anesthesia Type Planned: General Anesthesia Pt an Appropriate Candidate for the Planned Anesthesia: Yes Alternatives and Risks of Anesthesia Discussed w Pt/Guardian: Yes Pt/Guardian Understands and Agrees with Anesthesia Plan: Yes PreAnesthesia Questionnaire - Past Health History Medical/Surgical History: Denies Medical/Surgical History Other HEENT History: wears glasses Gastrointestinal History: Reports: GERD Genitourinary History: Reports: Renal Calculus 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: 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 History: Reports: Fracture Other 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 History: arm as a child Endocrine/Metabolic History: Reports: Obesity/BMI 30+ - Past Surgical History Head Surgeries/Procedures: Reports: None HEENT Surgical History: Reports: Oral Surgery, Tonsillectomy Other HEENT Surgeries/Procedures: wisdom teeth Female Surgical History: Reports: Section - SUBSTANCE USE Smoking Status *Q: Former Smoker Tobacco Use Within Last Twelve Months: No Recreational Drug Use History: No - HOME MEDS Home Medications: Home Meds Esomeprazole [NexIUM] 40 mg PO BID 11/11/16 [History] Hydrocodone/Acetaminophen [Hydrocodon-Acetaminophn 10325] 1 tab PO ASDIRECTED PRN 11/11/16 [History] - CURRENT (IN HOUSE) MEDS Current Meds: Current Medications Lactated Ringer's (Ringers, Lactated) 1,000 mls @ 125 mls/hr IV ASDIRECTED VIKI Last Admin: 11/14/16 11:19 Dose: 125 mls/hr Scopolamine (Transderm-Scop) 1.5 mg TRDERM Q72H PRN PRN Reason: Nausea Last Admin: 11/14/16 11:20 Dose: 1.5 mg Discontinued Medications Cefazolin Sodium/Dextrose 2 gm (/ Premix) 50 mls @ 100 mls/hr IV ONETIME ONE Stop: 11/14/16 05:29
[2016-11-14] MEDS ORDERED: Propofol 200 MG/20 ML SDV ONE (12:18)
[2016-11-14] MEDS ORDERED: Lidocaine 2% 5 ML SDV ONE (12:18)
[2016-11-14] MEDS ORDERED: Midazolam 1 MG/ML 2 ML SDV ONE (12:19)
[2016-11-14] MEDS ORDERED: fentaNYL 100 MCG/2 ML SDV ONE ×2 (12:19→14:08)
[2016-11-14] MEDS ORDERED: Neostigmine Methylsulfate 1 MG/ML 5 ML Syringe ONE (12:20)
[2016-11-14] MEDS ORDERED: Rocuronium 10 MG/ML 10 ML Syringe ONE (12:20)
[2016-11-14] MEDS ORDERED: Ondansetron 4 MG/2 ML SDV ONE ×3 (12:20→14:10)
[2016-11-14] MEDS ORDERED: Ketorolac 30 MG/ML SDV ONE (12:20)
[2016-11-14] MEDS ORDERED: HYDROmorphone 2 MG/ML Syringe ONE (12:21)
[2016-11-14] MEDS ORDERED: Octyl 2-Cyanoacrylate 1 Tube ONE (13:05)
[2016-11-14] MEDS ORDERED: Bupivacaine 0.25%/EPINEPHrine 1:200,000 10 ML SDV ONE (13:05)
[2016-11-14] MEDS ORDERED: ePHEDrine 50 MG/ML SDV ONE (13:40)
[2016-11-14] MEDS ORDERED: HYDROmorphone 2 MG/ML Syringe IVPUSH ONE (13:59)
[2016-11-14] MEDS: fentaNYL 100 MCG/2 ML SDV IVPUSH PRN ×2 (15:00→15:13)
--- NOTE | 2016-11-14 15:22 | PCM.POSTAN ---
POST ANESTHESIA ASSESSMENT - MENTAL STATUS Mental Status: Alert - RESPIRATORY Respiratory Status: Respiratory Rate WNL, Airway Patent, O2 Saturation Stable - CARDIOVASCULAR CV Status: Pulse Rate WNL, Blood Pressure Stable - GASTROINTESTINAL GI Status: No Symptoms - PAIN Pain Score: 3 - POST OP HYDRATION Hydration Status: Adequate & Stable
--- NOTE | 2016-11-14 15:34 | PCM.OPNOTE ---
- General Post-Op/Procedure Note Date of Surgery/Procedure: 11/14/16 Operative Procedure(s): lap sandrine Findings: gall bladder is yellow and green, and with large amt of adhesion, cw chronic cholecystitis; wall is not thickened; one large gall stone 1.5 cm; [id number] Pre Op Diagnosis: acute and chronic cholecystitis Post-Op Diagnosis: Same Anesthesia Technique: General ET Tube Primary Surgeon: Mayo Burton Pathology: sent Complications: None Condition: Good Free Text/Narrative:: Intake & Output 11/14/16 11/14/16 11/14/16 06:59 14:59 22:59 Intake Total 1700 Output Total 75 75 Balance -75 3212
[2016-11-14] MEDS ORDERED: Acetaminophen/oxyCODONE 325-10 MG Tab PO ONE ×2 (16:15)
--- NOTE | 2016-11-14 16:25 | PCM48HPAN ---
Post Anesthesia Note - EVALUATION WITHIN 48HRS OF ANESTHETIC Vital Signs in Normal Range: Yes Patient Participated in Evaluation: Yes Respiratory Function Stable: Yes Airway Patent: Yes Cardiovascular Function Stable: Yes Hydration Status Stable: Yes Pain Control Satisfactory: Yes Nausea and Vomiting Control Satisfactory: Yes Mental Status Recovered: Yes - COMMENTS/OBSERVATIONS Free Text/Narrative:: Pt states she has mild nausea at this time with no vomiting. Pain is mild rating it as a 3 out of 10. Will start on oral pain medication when possible. Pt ok with this.
[2016-11-14 17:30] VITALS: BP 111/71
--- NOTE | 2016-11-14 22:19 | OR ---
SURGEON: Mayo Burton MD DATE OF PROCEDURE: 11/14/2016 PREOPERATIVE DIAGNOSIS: Acute on chronic cholecystitis. POSTOP DIAGNOSIS: Acute on chronic cholecystitis. PERFORM PERFORMED: Laparoscopic cholecystectomy. COMPLICATIONS: None. FINDINGS: Gallbladder was yellow and green and with large amount of adhesion consistent with chronic and acute cholecystitis. Wall is not thickened. One large gallstone at least 1.5 cm large. DESCRIPTION OF PROCEDURE: The patient was taken to the operating room and placed in the supine position. After the intubation of general endotracheal anesthesia, the patient's abdomen was prepped and draped in the usual sterile fashion. Using [address], a 12 mm trocar was placed supraumbilically and then followed with pneumoperitoneum. A 5 mm trocar was placed in the epigastrium and two 5 mm trocars placed in the right upper quadrant. The placement of the last three trocars was done under direct video supervision. Upon gaining entrance to the abdominal cavity, an extensive examination was then performed. The gallbladder was located and identified and retracted to the dome of the liver at the triangle of Calot. The cystic duct was clipped three more times and then using the endoscopic clip, was transected with placement of the endoscopic clip and transection was performed with care, ensuring the posterior prong of the instruments were clearly visualized prior to exercising the procedure. The gallbladder was dissected using electrocautery out of the liver bed and then removed using endoscopic bag through the umbilical site. The gallbladder was removed en bloc and there was no bile spillage and this was then followed with extensive irrigation until the bile was clear from blood and bile. The trocars were then removed under direct video supervision. The 12 mm umbilical site was then closed with deep stitches using 0 Vicryl followed with proximal stitches using 3-0 Vicryl and Dermabond. The other three trocar sites were closed with 3-0 Vicryl followed with approximation of skin with Dermabond. The patient was then awakened and extubated and transferred to the recovery room in hemodynamically stable condition. At the conclusion of the surgery, before closing the abdominal wound, instrument count and sponge count were done and were correct. The patient tolerated the procedure well and there were no intraoperative complications. Dr. Burton was present through the whole procedure. Just before surgery, a timeout was called. The patient was identified and procedure identified and procedure started. Intraoperative findings as dictated above. As always, thank you for the kind referral. KIRA CUEVA /[id number]
== END 2016-11-14 17:05 | disposition home or self-care (01) ==
LOC: MW.SDS 10:31
PROVIDERS: ATTEND Surgery
PROC: 0FT44ZZ Resection of Gallbladder, Percutaneous Endoscopic Approach (ICD-10-PCS; principal; 2016-11-14)
DX: K80.10 Calculus of gallbladder with chronic cholecystitis without obstruction (principal); K21.9 Gastro-esophageal reflux disease without esophagitis; E66.01 Morbid (severe) obesity due to excess calories; Z88.1 Allergy status to other antibiotic agents; Z79.899 Other long term (current) drug therapy; Z98.890 Other specified postprocedural states; Z87.891 Personal history of nicotine dependence; Z87.442 Personal history of urinary calculi; Z68.39 Body mass index [BMI] 39.0-39.9, adult
CPT/HCPCS: 47562; 81025; A9270; J1170; J1885; J2250; J2405; J3010; J7120; 00790; 88304; J2704